=== PATIENT | male | born 1965 | race African-American/Black ===

== ENCOUNTER 2017-04-09 15:44 | Emergency (ER) | payer OTHER, MEDICAID ==
[~2017-04-09] VITALS: Ht 172.7 cm; Wt 95.0 kg
[2017-04-09 16:44] VITALS: BP 114/74
== END 2017-04-09 19:23 | disposition home or self-care (01) ==
LOC: ER 19:16
DX: I10 Essential (primary) hypertension (principal)
CPT/HCPCS: 99281